=== PATIENT | male | born 1940 | race Two or more races ===

== ENCOUNTER 2020-06-17 15:17 | Outpatient (CLI) | payer OTHER | END 2020-06-17 15:26 | disposition home or self-care (01) | LOC: RAD 15:17 | PROVIDERS: ATTEND Internal Medicine Hematology & Oncology | DX: C61 Malignant neoplasm of prostate (principal); C79.51 Secondary malignant neoplasm of bone; C78.01 Secondary malignant neoplasm of right lung; C78.02 Secondary malignant neoplasm of left lung; C78.6 Secondary malignant neoplasm of retroperitoneum and peritoneum; I10 Essential (primary) hypertension ==